=== PATIENT | female | born 1990 | race African-American/Black ===

== ENCOUNTER 2016-08-01 03:40 | Emergency (ER) | payer OTHER ==
[~2016-08-01] VITALS: Ht 154.9 cm; Wt 59.0 kg
[~2016-08-01 03:40] MED LIST: LANTUS SOL100 UNIT/1 SUBQ; NOVOLOG100 UNIT/1 SUBQ; PROTONIX40 M1 PO
[2016-08-01 04:18] LABS: BASOPHILS 0.5 % (0.0-2.0); EOSINOPHILS 0.3 % (0.0-3.0); HEMATOCRIT 35.8 % (37.0-47.0); HEMOGLOBIN 11.7 gm/dL (12.0-15.0); MCHC 32.7 g/dL (28.0-37.0); MCV 82.5 fL (80.0-100.0); MONOCYTES 3.3 % (1.0-8.0); PLATELET COUNT 452 thou/uL (150-400); POLYS 80.9 % (36.0-66.0); RBC 4.34 mil/uL (4.20-5.00); RDW 15.8 % (10.5-14.5); WBC 12.4 thou/uL (4.0-11.0)
[2016-08-01 04:22] LABS: MANUAL DIFF NO
[2016-08-01] MEDS ORDERED: ZOFRAN ODT4 MG PO (04:23)
[2016-08-01] MEDS ORDERED: PHENERGAN 25 MG25 M1 PO (04:23)
[2016-08-01 04:50] LABS: POTASSIUM 3.7 mmol/L (3.5-5.1)
[2016-08-01 04:55] LABS: CALCIUM 8.9 mg/dL (8.5-10.1); CREATININE 1.2 mg/dL (0.6-1.0)
== END 2016-08-01 07:16 | disposition home or self-care (01) ==
LOC: ER 03:40
PROVIDERS: Emergency Medicine
DX: E10.65 Type 1 diabetes mellitus with hyperglycemia (principal); R11.2 Nausea with vomiting, unspecified